=== PATIENT | female | born 1955 ===

== ENCOUNTER 2024-03-04 06:00 | Day surgery (SDC) | payer OTHER ==
[2024-02-28 12:38] VITALS: BP 150/88
[~2024-03-04] VITALS: Ht 157.5 cm; Wt 68.9 kg
[~2024-03-04 06:00] MED LIST: ATORVASTATIN CA10 MG PO; COZAAR50 MG PO; TOPROL XL25 M1 PO
[2024-03-04] MEDS ORDERED: MEPERIDINE HCL/PF 25 MG/ML VIAL IM PRN (14:30)
[2024-03-04] MEDS ORDERED: CEFAZOLIN SODIUM 1,000 MG VIAL IV ONE ×2 (14:30→15:00)
[2024-03-04] MEDS ORDERED: PROMETHAZINE HCL 25 MG/ML AMPUL IM PRN (14:30)
[2024-03-04] MEDS ORDERED: TRAM1TAB98 PO (14:41)
[2024-03-04] MEDS ORDERED: DUI500 PO (14:41)
[2024-03-04] MEDS ORDERED: MORPHINE SULFATE 4 MG/ML VIAL IV ONE (15:00)
[2024-03-04] MEDS ORDERED: METHYLPREDNISOLONE ACETATE 80 MG/ML VIAL IJ ONE (15:00)
[2024-03-04] MEDS ORDERED: EPINEPHRINE IJ ONE (15:00)
[2024-03-04] MEDS ORDERED: LIDOCAINE IJ ONE (15:00)
[2024-03-04] MEDS ORDERED: EPINEPHRINE HCL/PF 1 MG/ML AMPUL IJ ONE ×2 (15:00)
[2024-03-04] MEDS ORDERED: BUPIVACAINE HCL 30 ML VIAL IJ ONE (15:00)
[2024-03-04] MEDS ORDERED: CEFADROXIL 500 MG CAPSULE PO SCH (21:00)
== END 2024-03-04 18:00 | disposition home or self-care (01) ==
LOC: CIR.AMB 06:00
PROVIDERS: ATTEND Orthopaedic Surgery Sports Medicine
DX: S83.232A Complex tear of medial meniscus, current injury, left knee, initial encounter (principal); S83.272A Complex tear of lateral meniscus, current injury, left knee, initial encounter; M17.12 Unilateral primary osteoarthritis, left knee